=== PATIENT | female | born 1940 | race Caucasian/White ===

== ENCOUNTER → 2019-06-18 | Outpatient (CLI) | payer MEDICARE, BC ==
[~2019-06-18] MED LIST: ASPIRIN E.C. 8181 MG PO; CARDIZEM CD 18180 MG PO; COLACE 100100 MG/CAP PO; CORDARONE200 MG/TAB PO; COUMADIN 2MG2 MG/TAB PO; EFFEXOR 3737.5 MG/TA PO; GLYNASE 3MG3 MG/TAB PO; NITROSTAT0.4 MG/TAB SL; NORCO 325 MG-51 TAB PO; PRAVACHOL 40MG40 MG PO; PRILOSEC 20MG20 MG PO; PYRIDIUM 100MG100 MG PO; SYNTHROID0.112 MG/T PO; ZANTAC 150MG T150 MG PO; ZESTRIL 20MG TA20 MG PO
== END ==
LOC: ZCOL.LAB 16:36
DX: J33.9 Nasal polyp, unspecified (principal)